=== PATIENT | male | born 1950 | race Caucasian/White ===

== ENCOUNTER 2017-06-17 09:18 | Observation (INO) | payer MEDICARE ==
--- NOTE | 2017-05-27 09:42 | HP ---
CC: Maryjo KRISTAL Chaudhry * HISTORY AND PHYSICAL: DATE OF PLANNED ADMISSION AND SURGERY: 06/17/17 - [facility] HISTORY OF PRESENT ILLNESS: Mr. Haney is a 66-year-old white male who is admitted with a 3 cm bladder calculus for cystoscopy and cystolitholapaxy. Mr. 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 The osteomyelitis required him to be on prolonged IV antibiotics and needing several surgeries, requiring hospitalization for about three months. During his hospital stay, he was having recurrent episodes of suprapubic discomfort, urgency, frequency and gross hematuria. On his [facility] at [facility], a large bladder calculus was noted. Because of the concomitant problems with his osteomyelitis, no treatment of the bladder calculus was offered at that time. The patient ultimately recovered from his jaw osteomyelitis. He continued to have voiding symptoms consisting of episodes of strong urgency, frequency, burning on urination feeling of incomplete bladder emptying, and episodes of gross hematuria. He was evaluated in my office and had a renal ultrasound, which was normal, showing no reanal calculi and no hydronephrosis or renal masses. Bladder ultrasound showed a 3 cm calculus. He had minimal post void residual. KUB confirmed the presence of a 3 cm radiopaque calculus in the bladder. Cystoscopy showed a moderately enlarged and obstructing prostate and a large bladder calculus. There were no suspicious bladder lesions seen. There was some hyperemia and edema of the bladder wall adjacent to the stone, which is felt to be due to mechanical irritation by the stone. His PSA six months ago was 0.4 Because of the prostate enlargement and the element of bladder outlet obstruction, he was started on finasteride. PAST MEDICAL HISTORY AND SYSTEM REVIEW: The patient is hypertensive, maintained on metoprolol 25 mg daily, Cozaar 50 mg daily, and HCTZ 25 mg daily. He was worked up by Dr. Bell from [facility] because of hypertension and possible congestive heart failure. His echocardiogram was normal and I am including it in his chart. The patient has type 2 diabetes mellitus and is maintained on metformin 500 mg daily. The patient denies any chest pain or shortness of breath at this time. The patient has history of Crohn disease, but it has not been active and he is on no treatment for the condition. The patient reports being allergic to CLINDAMYCIN, which gives him bloody stools , TRAMADOL, which gives him respiratory distress; REMICADE, which give him a severe systemic reaction; and HAEMOPHILUS INFLUENZAE VACCINE which gave him anaphylactic shock. He has taken quinolones without any reaction. PHYSICAL EXAMINATION GENERAL: Moderately overweight, otherwise healthy looking white male. VITAL SIGNS: Blood pressure 120/80, pulse of 70. LUNGS: Clear. HEART: Regular and rhythmic. No murmurs. ABDOMEN: Soft. No masses, no tenderness, and no CVA tenderness. EXTERNAL GENITALIA: He is circumcised. No penile lesions. Normal testes and no inguinal hernias. RECTAL EXAM: Shows a moderately enlarged, but non-suspicious prostate. EXTREMITIES: Show no edema. IMPRESSION: 1. Bladder outlet obstruction, improved on treatment with finasteride. 2. A 3 cm bladder calculus with minimal postvoid residual. 3. Diabetes mellitus. 4. Hypertension. 5. Crohn disease. 6. History of osteomyelitis of the right jaw, treated. PLAN: Plan is for cystoscopy and cystolitholapaxy. Considering the size of the stone, he might require more than one procedure to render him stone free. I discussed the procedure in detail. Some of the potential complications including bladder injury and need for staged procedure were discussed. All his questions were answered. [id number]/[facility] #: [id number] AZUL
[~2017-06-17 09:18] MED LIST: Buffered Lidocaine 0.9% SYRIN* 5 ML/SYR SYRINGE INTRADERM ONE
[2017-06-17] MEDS ORDERED: Buffered Lidocaine 0.9% SYRIN* 5 ML/SYR SYRINGE ONE (09:30)
[2017-06-17] MEDS ORDERED: Levofloxacin 750 MG IVPREMIX(* 750 MG/150 ML BAG ONE (09:30)
[2017-06-17] MEDS ORDERED: fentaNYL* 50 MCG/ML 2 ML VIAL (100 MCG VIAL) ONE (12:03)
[2017-06-17] MEDS ORDERED: Midazolam* 1 MG/ML 2 ML VIAL (2 MG) ONE (12:03)
[2017-06-17] MEDS ORDERED: Dextrose 50% Syringe 50 ML* 25 GM/50 ML SYRINGE ONE (12:27)
[2017-06-17] MEDS ORDERED: Lidocaine 2% PF * 5 ML VIAL ONE (12:51)
[2017-06-17] MEDS ORDERED: Desflurane* 240 ML INH ONE (13:08)
[2017-06-17] MEDS ORDERED: Acetaminophen TAB* 325 MG PO PRN ×2 (13:21→18:08)
[2017-06-17] MEDS ORDERED: Ondansetron INJ* 2 MG/ML VIAL IV PRN ×2 (13:21→18:08)
[2017-06-17] MEDS ORDERED: EPHEDrine (Pressors)* 50 MG/ML VIAL ONE (13:22)
[2017-06-17] MEDS ORDERED: KETAMINE HCL* 50 MG/ML 10 ML VIAL ONE (13:45)
[2017-06-17] MEDS ORDERED: Labetalol IV* 5 MG/ML 20 ML VIAL ONE (14:22)
[2017-06-17] MEDS ORDERED: Ondansetron INJ* 2 MG/ML VIAL ONE (15:36)
[2017-06-17] MEDS ORDERED: Acetaminophen TAB* 325 MG ONE (16:30)
[2017-06-17] MEDS ORDERED: Oxybutynin TAB* 5 MG ONE (16:30)
[2017-06-17] MEDS ORDERED: Furosemide IV* 10 MG/ML 2 ML VIAL (20 MG) IV SLOW PU ONE (16:40)
[2017-06-17] MEDS ORDERED: Furosemide IV* 10 MG/ML 2 ML VIAL (20 MG) ONE (16:46)
[2017-06-17 17:36] LABS: Hematocrit 43 % (42-52); Hemoglobin 14.4 g/dl (14.0-18.0); Mean Corpuscular HGB Conc 34 g/dl (31-36); Mean Corpuscular Hemoglobin 29 pg (27-31); Mean Corpuscular Volume 87 fL (80-94); Mean Platelet Volume 7 um3 (7.4-10.4); Red Blood Count 4.96 10^6/ul (4.0-5.4); Red Cell Distribution Width 14 % (10.5-15)
[2017-06-17] MEDS ORDERED: Dextrose 50% Syringe 50 ML* 25 GM/50 ML SYRINGE IV PUSH PRN (18:19)
[2017-06-17 18:44] LABS: BUN/Creatinine Ratio 14.8 (8-20); Calcium 8.8 mg/dL (8.6-10.3); EGFR African American 87.7 (>60); EGFR Non-African American 68.2 (>60); Magnesium 1.5 mg/dL (1.9-2.7); Potassium 3.5 mmol/L (3.5-5.0)
[2017-06-17] MEDS ORDERED: Magnesium Sulf 4 GM/100 ML IV* 4,000 MG/100 ML BAG IVPB ONE (18:58)
[2017-06-17] MEDS ORDERED: Metoprolol Tartrate TAB* 25 MG PO SCH (22:00)
[2017-06-17] MEDS ORDERED: Losartan TAB* 25 MG PO SCH (22:00)
[2017-06-17] MEDS ORDERED: Hydrochlorothiazide TAB* 25 MG PO SCH (22:00)
[2017-06-17] MEDS ORDERED: Nitroglycerin TAB 0.4 MG* 0.4 MG TAB SL ONE (22:25)
[2017-06-17] MEDS ORDERED: Nitroglycerin TAB 0.4 MG* 0.4 MG TAB ONE (22:30)
[2017-06-17] MEDS: Insulin LISPRO* 1 UNITS UNIT SUBCUT SCH (22:37)
[2017-06-17] MEDS: Metoprolol Tartrate TAB* 25 MG PO SCH (22:46)
--- NOTE | 2017-06-17 22:56 | PN ---
Progress Note - Progress Note Date of Service: 06/17/17 Note: Paged for concern for ongoing chest pain. No EKG changes. Trop negx2. Some relief with nitro. Will place on telemetry, obtain final set of troponin.
--- NOTE | 2017-06-18 02:37 | HP ---
CC: Maryjo Chaudhry NP; Dr. Peters * ADMISSION HISTORY AND PHYSICAL: DATE OF ADMISSION: 06/17/17 PRIMARY CARE PROVIDER: Maryjo Chaudhry NP UROLOGIST: Dr. Peters. ADMITTING PROVIDER: BYRON Cerda SUPERVISING PHYSICIAN: Dr. Eddie Peguero * (DICTATED BY BYRON CERDA) CHIEF COMPLAINT: Syncope. HISTORY OF PRESENT ILLNESS: This is a 66-year-old gentleman with non-insulin- dependent diabetes, hypertension, peripheral neuropathy, Crohn's disease, obstructive sleep apnea, chronic diastolic heart failure, and rather recent history of right mandibular osteomyelitis, who underwent bladder lithotripsy with Dr. Peters earlier today. While in Recovery, the patient had a sudden episode of syncope. The patient in the recovery area was alert and responsive and had been talking to his when suddenly he went unresponsive. There was no associated seizure activity and the patient remained lethargic and took quite some time to return to his usual mental state. The patient does recall the episode and he states that he recalls feeling nauseated and his extremities felt heavy just preceding the episode. No complaints of chest pain or palpitations or shortness of breath. At the time of evaluation, he states that he feels "back to normal", continues to deny chest pain, shortness of breath, or palpitations. He denies any history of similar episodes, but does have multiple medication allergies and intolerances including opioids causing significant change in mental status. For this reason, he received mostly gas sedation with small dose of ketamine. Just preceding the acute episode, he had received a dose of Lasix due to poor urine output and Ditropan. The patient states that he has had no recent acute illness. He was otherwise feeling well prior to the procedure. He took his metoprolol as instructed, but held his hydrochlorothiazide and losartan. Regarding his diabetes control, the patient states that he was taken off of his metformin about a month ago due to excellent glucose control. He continues to check his blood glucose each morning and states that it is generally less than 130 mg/dL, but also reports that he tends to become symptomatic with a glucose of less than 100 mg/dL. The patient does have Crohn's disease and has frequent bloody diarrhea and is not on any current treatment. 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 The patient was hospitalized at [facility] for July and August of this year with mandibular osteomyelitis and underwent multiple surgical procedures without complication as a result of this. He is followed by Dr. Jacinto Restrepo and is not currently treated with any antibiotics. He has some chronic pain associated with this, but no recent increase in pain. PAST MEDICAL HISTORY: 1. Kef-jhyceji-pkkmiquhu diabetes - reportedly well controlled and not currently on any hypoglycemic agents. 2. Hypertension. 3. Peripheral neuropathy. 4. Crohn's disease. 5. Right mandibular osteomyelitis. 6. Glaucoma. 7. Obstructive sleep apnea by history without use of CPAP. 8. Chronic diastolic heart failure. PAST SURGICAL HISTORY: 1. Multiple jaw surgeries. 2. Hernia repair. HOME MEDICATIONS: 1. Finasteride 5 mg p.o. daily. 2. Hydrochlorothiazide 25 mg p.o. daily. 3. Xalatan 1 drop in both eyes daily. 4. Cozaar 50 mg p.o. daily. 5. Meclizine 25 mg p.o. daily as needed for dizziness. 6. Metformin 500 mg p.o. twice daily. 7. Metoprolol tartrate 25 mg p.o. twice daily. SOCIAL HISTORY: The patient denies a history of smoking. Rare alcohol consumption. He lives at home with his . REVIEW OF SYSTEMS: As noted above in HPI, all other systems reviewed and otherwise considered negative. PHYSICAL EXAMINATION GENERAL: This is a 66-year-old male, who is lying comfortably in the recovery area accompanied by his in a reclined position and in no acute distress, able to provide a full history. VITAL SIGNS: Most recent vitals, temperature 98.4 degrees Fahrenheit, pulse 82 beats per minute, respiratory rate 13, oxygen saturation 96% on 2 L, and blood pressure 129/72 and entitled CO2 of 24. Orthostatic vital signs includes blood pressure of 116/68, lying with a pulse of 79, sitting 126/76 with a pulse of 90 , standing 136/78 with a pulse of 92. HEENT: Head is normocephalic and atraumatic. Mucous membranes are pink and moist. RESPIRATORY: Lungs are clear to auscultation without wheezes, crackles, or rhonchi. CARDIOVASCULAR: Heart has a regular rate and rhythm without murmurs, rubs, or gallops. ABDOMEN: Soft and nontender to palpation, Maza catheter in place with moderate bloody output. NEUROLOGIC: Strength is grossly intact in all 4 extremities. No focal deficits. PSYCH: The patient is alert and appropriately oriented. LABORATORY DATA: Laboratory evaluation, CBC shows a white blood cell count of 15,000, hemoglobin 14.4 g/dL, and a platelet count of 303,000. Basic metabolic panel shows a sodium of 134 mmol/L, potassium 3.5, BUN 16, creatinine 1.06, random glucose of 185 mg/dL. Magnesium of 1.5. Troponin 0. BNP of 21. IMAGING: EKG shows a right bundle-branch block with T-wave inversion in V1 and V2 without comparison available. ASSESSMENT AND PLAN: This is a 66-year-old male with vpx-iyapbfz-oethlrmpy diabetes, hypertension, peripheral neuropathy, Crohn's disease, recent right mandibular osteomyelitis, glaucoma, obstructive sleep apnea, and chronic diastolic heart failure who had an acute syncopal episode postoperatively following bladder lithotripsy without clear etiology. 1. Syncope - no clear etiology for the patient's acute episode. No acute neurologic deficits and the patient has fully recovered at this time. It sounds to be vasovagal based on his description of events or perhaps a medication reaction as he had recently received Ditropan and Lasix. No evidence of cardia dysrhythmia as he was on the monitor at that time. No dramatic hypotension recorded. Orthostatic vital signs at this time are within normal limits. No evidence of acute coronary syndrome. Because of his multiple comorbidities, recommend that the patient stay for a period of observation. We will maintain continuous telemetry monitoring, repeat an EKG, and obtain serial troponins. 2. Status post bladder lithotripsy - the patient had a 3 cm bladder calculus treated by Dr. Peters earlier today. Maza catheter is in place. Bladder irrigation and Maza care per Dr. Peters. 3. Hypomagnesemia - we will replace magnesium. 4. Hypertension - the patient is normotensive at this time with normal orthostatic vital signs. We will continue his metoprolol, but hold his hydrochlorothiazide and losartan at this time. 5. Peripheral neuropathy. 6. Crohn's disease. The patient is not actively treated for this. Could use GI followup, but this is unrelated to his acute hospitalization. 7. Glaucoma. 8. Recent history of right mandibular osteomyelitis - chronically followed by Dr. Jacinto Restrepo, but not currently treated. 9. Obstructive sleep apnea without use of CPAP. 10. Chronic diastolic heart failure without evidence of acute exacerbation. 11. Code status. The patient is full code. 12. Healthcare proxy is his . DISPOSITION: The patient is being admitted to observation status after an acute syncopal episode with plans for likely discharge tomorrow as long as he remains asymptomatic. BYRON CERDA [id number]/[facility] #: [id number] MTDD
[2017-06-18 05:49] LABS: Hematocrit 41 % (42-52); Hemoglobin 14.1 g/dl (14.0-18.0); Mean Corpuscular HGB Conc 34 g/dl (31-36); Mean Corpuscular Hemoglobin 30 pg (27-31); Mean Corpuscular Volume 87 fL (80-94); Mean Platelet Volume 7 um3 (7.4-10.4); Red Blood Count 4.69 10^6/ul (4.0-5.4); Red Cell Distribution Width 14 % (10.5-15); White Blood Count 10.6 10^3/ul (3.5-10.8)
[2017-06-18 06:09] LABS: BUN/Creatinine Ratio 12.3 (8-20); Calcium 8.9 mg/dL (8.6-10.3); EGFR African American 76.2 (>60); EGFR Non-African American 59.2 (>60); Potassium 3.8 mmol/L (3.5-5.0)
[2017-06-18] MEDS: Insulin LISPRO* 1 UNITS UNIT SUBCUT SCH (08:16)
[2017-06-18] MEDS ORDERED: Latanoprost 0.005%* 2.5 ml BTL BOTH EYES SCH (09:00)
[2017-06-18] MEDS: Metoprolol Tartrate TAB* 25 MG PO SCH (09:46)
[2017-06-18 11:33] VITALS: BP 129/74
--- NOTE | 2017-06-18 13:26 | OP ---
OPERATIVE REPORT: DATE OF OPERATION: 06/17/17 DATE OF : 48 SURGEON: Neal Peters MD ANESTHESIOLOGIST: Dr. Milton Mancuso. ANESTHESIA: General. PRE-OP DIAGNOSES: 1. Bladder calculus (3.5 cm). 2. Bladder outlet obstruction and prostate enlargement. POST-OP DIAGNOSES: 1. Bladder calculus (3.5 cm). 2. Bladder outlet obstruction and prostate enlargement. OPERATIVE PROCEDURE: 1. Cystoscopy. 2. Laser cystolitholapaxy. INDICATIONS FOR PROCEDURE: Mr. Haney is 66-year-old white male, who has bladder outlet obstruction and prostate enlargement and has been maintained on medical treatment with the good bladder emptying. He was noted earlier this year to have a 3 cm bladder calculus. He has been symptomatic from it having frequency, urgency, and episodes of gross hematuria. Renal ultrasound was normal. Cystoscopy confirmed an obstructing prostate, minimal postvoid residual and a large bladder calculus. Because of the above history and finding, the patient was taken to the operating room for the above procedure. Pathology: at cystoscopy, the penile and bulbar urethrae looked normal. The prostatic urethra measured about 3 cm in length and there was moderate obstruction by prostate enlargement and by elevation of the bladder neck and a prominent median lobe. Examination of the bladder showed a yellowish-grayish calculus measuring about 3.5 cm in diameter. It was located in the base of the bladder. The bladder wall showed diffuse moderate trabeculations. There were no suspicious bladder lesions seen. No diverticula were noted. The ureteral orifices looked normal. The stone was hard and difficult to fragment due to its composition. The prostatic urethra was vascular. DESCRIPTION OF PROCEDURE: After successful general anesthesia, patient was placed in the lithotomy position and was prepped and draped for cystoscopy. Cystoscopy was performed. The bladder was inspected and the above findings were noted. The stone was felt to be too large to be engaged in the stone crushing forceps. A 1,000 micron laser fiber was then introduced through the ureteroscope. Extensive lasering of the calculus was then performed. That allowed partially hollowing the calculus and to allow for the stone crushing forceps to be applied over the calculus. During the lasering, care was taken not to injure the bladder wall and the lasering was done with constant direct vision lasering the stone only. The stone crushing forceps were then introduced inside the bladder. The bladder was filled up with irrigation fluid. The stone was grasped with the stone crushing forceps and was fragmented into several pieces. The bladder was irrigated and the fragments were extracted. There was blood noted from the prostatic urethra and that made the visualization rather difficult and unsafe to perform any additional fragmentation of the stone with the stone the grasping forceps. There were several stone fragments remaining in the bladder. It was decided at this point to stop the procedure. A cystoscopy showed no evidence of any bladder wall injury. The cystoscope was removed and a size 20 [place]ian Maza catheter was passed inside the bladder and the balloon inflated with 15 cc of water. Irrigation yielded clear returns. Patient tolerated the procedure well and left the operating room in good condition. The plan is to bring the patient back in another week for completion of the cystolitholapaxy and extraction of the residual stone fragments. [id number]/[facility] #: [id number] AZUL
[2017-06-18] MEDS ORDERED: Finasteride TAB* 5 MG PO SCH (18:00)
--- NOTE | 2017-06-19 06:08 | DS ---
CC: Maryjo Chaudhry NP; Dr. Peters; Dr. Bell DISCHARGE SUMMARY: DATE OF ADMISSION: 06/17/17 DATE OF DISCHARGE: 06/18/17 PRIMARY CARE PROVIDER: Maryjo Chaudhry NP UROLOGIST: Dr. Peters. MINE SAFETY MANAGER: Dr. Bell. DISCHARGE DIAGNOSES: 1. Syncopal episode, likely vasovagal, associated with postanesthesia nausea. 2. Status post cystoscopy with laser cystolitholapaxy. SECONDARY DIAGNOSES: 1. Diet-controlled diabetes. 2. Hypertension. 3. Peripheral neuropathy. 4. Crohn's disease. 5. History of right mandibular osteomyelitis. 6. Glaucoma. 7. Obstructive sleep apnea. 8. Chronic diastolic heart failure. MEDICATION LIST: Unchanged from admission. 1. Finasteride 5 mg p.o. q.p.m. 2. Hydrochlorothiazide 25 mg p.o. q.p.m. 3. Xalatan 0.005% 1 drop to both eyes in the morning. 4. Losartan 50 mg p.o. q.p.m. 5. Metoprolol tartrate 25 mg p.o. b.i.d. HOSPITAL COURSE: Mr. Haney is a 66-year-old male with a past medical history as stated above th at underwent bladder lithotripsy with Dr. Peters. While in recovery, the patient had a syncopal ep isode. For more details about his presentation, I refer you to his history and physical. Due to his syncopal episode, the hospitalist service was consulted and the patient was transferred to telemetry floor for further evaluation. His laboratory test did not show any significant change. His creatinine is slightly elevated, but no t that different from his baseline. He had serial troponins that were negative and serial EKGs that showed sinus rhythm with a right bundle branch block that is not new. The patient's orthostatic were negative and he was feeling well today and anxious for discharge. I d id offer him the option of having an outpatient stress test by Tuesday, but he would prefer to see Dr. Bell and then decide if he is going to pursue a stress test or not. At this point, the impression is that he had a syncopal episode, likely vasovagal associated with nausea after his surgical procedu re. I did discuss this discharge with Dr. Schuster and his recommendation is for the patient to go home with a Maza catheter and to call their office Tuesday to schedule his followup. PHYSICAL EXAMINATION: Vital Signs: Temperature 98.3, heart rate is 71, respiratory rate is 20, oxyg en saturation is 98% on room air, blood pressure is 105/61. General: The patient is a pleasant gent doc sitting up on the bed, in no acute distress. CVS: Normal S1 and S2. Regular rate and rhythm. Chest: Breath sounds present bilaterally with no added sounds. Abdomen is soft, bowel sounds pres ent. Extremities: No edema. Neuro: He is alert, awake, and oriented x3. Able to move all 4 extrem ities. DIET: Heart healthy, consistent carb diet. ACTIVITIES: As tolerated. DISPOSITION: To home. STATUS WHILE IN THE HOSPITAL: Observation. Please keep in mind this is a summarized version of this patient's hospital stay. If you need more in formation, please feel free to call me at [phone] or please obtain the full medical records. TIME SPENT: Appropriately 45 minutes was spent to complete the discharge. [id number]/[facility] #: [id number]
== END 2017-06-18 13:36 | disposition home or self-care (01) ==
LOC: OR 09:18 → SSU 18:08 → MEDTELE 23:58
PROVIDERS: ADMIT Internal Medicine; ATTEND Urology
PROC: 0TCB8ZZ Extirpation of Matter from Bladder, Via Natural or Artificial Opening Endoscopic (ICD-10-PCS; principal; 2017-06-17 10:45)
DX: R55 Syncope and collapse (principal); R11.0 Nausea; T41.1X5A Adverse effect of intravenous anesthetics, initial encounter; Y92.239 Unspecified place in hospital as the place of occurrence of the external cause; N21.0 Calculus in bladder; N32.0 Bladder-neck obstruction; I45.10 Unspecified right bundle-branch block; E11.9 Type 2 diabetes mellitus without complications; G62.9 Polyneuropathy, unspecified; K50.90 Crohn's disease, unspecified, without complications; M27.2 Inflammatory conditions of jaws; G47.33 Obstructive sleep apnea (adult) (pediatric); I11.0 Hypertensive heart disease with heart failure; I50.9 Heart failure, unspecified; Z88.8 Allergy status to other drugs, medicaments and biological substances; Z79.899 Other long term (current) drug therapy; N40.0 Benign prostatic hyperplasia without lower urinary tract symptoms
CPT/HCPCS: 36415; 80048; 82365; 83605; 83735; 83880; 84484; 85025; 85027; 88300; 93005; 96365; 96366; A9270-GY; G0378; J1940; J2250; J2405; J3010; J3475

== ENCOUNTER 2017-06-24 08:16 | Day surgery (SDC) | payer MEDICARE ==
--- NOTE | 2017-06-22 20:42 | HP ---
HISTORY AND PHYSICAL: DATE OF PLANNED ADMISSION AND SURGERY: 06/24/17 HISTORY OF PRESENT ILLNESS: Mr. Haney is a 66-year-old white male who is admitted with residual bladder calculi for cystoscopy and cystolitholapaxy. Please refer to my detailed history and physical for his admission dated . Mr. Haney has bladder outlet obstruction caused by prostate enlargement. He responded well to medical treatment with tamsulosin and finasteride, with good bladder emptying. He was noted on work-up to have a 3-cm bladder calculus. He was taken to the operating room on 06/17/17 and underwent a cystoscopy and cystolitholapaxy. The stone was large and hard to break and towards the end of the procedure, there were several residual stone fragments that could not be extracted due to poor visibility in the bladder from bleeding from the prostatic urethra. He had a Maza catheter placed. The plan was to bring him back to the operating room a week later for extraction of the residual stone fragments. Following his initial procedure and while in the PACU, he felt lightheaded and had early syncope. He was evaluated by the hospitalist service and was admitted overnight for observation. His cardiac workup was negative. The conclusion was he most likely had a vasovagal reflux. He was discharged the next day and has been feeling fine. Please refer to the detailed note from the hospitalist service regarding that admission. The patient has been doing fine. He has had no recurrent systemic symptoms. He is now admitted for cystolitholapaxy. There has not been any other changes in his medications or in his general medical condition. I discussed the above plans with the patient and his . All their questions were answered. [id number]/[facility] #: [id number] AZUL
[~2017-06-24 08:16] MED LIST changes: +Acetaminophen IV 1GM/100ML * 1,000 MG/100 ML VIAL IVPB ONE; +DiMENhydriNATE IV* 50 MG/ML VIAL IV PUSH PRN; +Famotidine IV* 10 MG/ML 2 ML (20 mg) IV ONE; +PROCHLORPERAZINE INJ 5 MG/ML 2 ML VIAL IV PRN
[2017-06-24] MEDS ORDERED: Famotidine IV* 10 MG/ML 2 ML (20 mg) ONE (08:32)
[2017-06-24] MEDS ORDERED: cefTRIAXone(*) 2 GM ADDV.VIAL IVPB ONE (08:32)
[2017-06-24] MEDS ORDERED: KETAMINE HCL* 50 MG/ML 10 ML VIAL ONE (09:36)
[2017-06-24] MEDS ORDERED: Midazolam* 1 MG/ML 10 ML VIAL (10 MG) ONE (09:36)
[2017-06-24] MEDS ORDERED: PROCHLORPERAZINE INJ 5 MG/ML 2 ML VIAL ONE (10:15)
[2017-06-24] MEDS ORDERED: Ondansetron INJ* 2 MG/ML VIAL ONE (10:15)
[2017-06-24] MEDS ORDERED: Lidocaine 2% PF* 10 ML AMP ONE (10:15)
[2017-06-24] MEDS ORDERED: Propofol* 10 MG/ML 20 ML BTL IV PUSH ONE (10:15)
[2017-06-24] MEDS ORDERED: Lidocaine 2% PF * 5 ML VIAL ONE (10:15)
[2017-06-24] MEDS ORDERED: Acetaminophen IV 1GM/100ML * 100 ML ONE (11:09)
[2017-06-24] MEDS ORDERED: DiMENhydriNATE IV* 50 MG/ML VIAL ONE (12:34)
[2017-06-24 14:33] VITALS: BP 143/72
--- NOTE | 2017-06-24 16:42 | OP ---
CC: Maryjo Chaudhry NP OPERATIVE REPORT: DATE OF OPERATION: 06/24/17 DATE OF : 48 SURGEON: Neal Peters MD ANESTHESIOLOGIST: Dr. Usman Glass. ANESTHESIA: General. PRE-OP DIAGNOSIS: Residual bladder calculi. POST-OP DIAGNOSIS: Residual bladder calculi. OPERATIVE PROCEDURE: 1. Cystoscopy. 2. Cystolitholapaxy. INDICATIONS FOR PROCEDURE: Mr. Haney is a 66-year-old white male who has a long history of bladder outlet obstruction and was noted to have a 3 cm bladder calculus. Last week he underwent a cystolitholapaxy. The stone was hard and difficult to break and towards the end of the procedure, after evacuating most of the stone fragments there was poor visibility due to bleeding from the prostatic urethra and from the bladder wall making additional cystolitholapaxy not safe. He had a Maza catheter placed and was discharged home. The patient now is admitted for extraction of the residual bladder calculi. PATHOLOGY AT CYSTOSCOPY: The penile and bulbar urethrae looked normal. The prostatic urethra measured about 2.5 cm in length and there was moderate obstruction by prostate enlargement. Examination of the bladder showed hyperemia, irritation, and mucosal disruption in the base of the bladder secondary to the recent instrumentation and cystolitholapaxy. There was, however, no evidence of any bladder perforation. The ureteral orifices looked normal. Several stone fragments measuring up to 1 cm in size were noted. DESCRIPTION OF PROCEDURE: After successful general anesthesia, patient was placed in the lithotomy position and prepped and draped for cystoscopy. A 25- Chilean cystoscope was introduced inside the bladder under direct vision. The findings in the area of the trigone were noted. Using the stone crushing forceps, the residual stone fragments were held, brought in into the middle of the distended bladder and crushed. The bladder was then thoroughly irrigated and all the stone fragments were evacuated. Final inspection showed no residual stones and no bladder injury. The scope was removed and a size 18 Maza catheter was passed inside the bladder and the balloon inflated with 10 cc of water. The patient tolerated the procedure well and left the operating room in good condition. The plan is to give him a trial of voiding before his discharge today. [id number]/[facility] #: [id number] [facility]
== END 2017-06-24 14:35 | disposition home or self-care (01) ==
LOC: OR 08:16
PROVIDERS: ATTEND Urology
PROC: 0TCB8ZZ Extirpation of Matter from Bladder, Via Natural or Artificial Opening Endoscopic (ICD-10-PCS; principal; 2017-06-24 09:30)
DX: N21.0 Calculus in bladder (principal); N40.1 Benign prostatic hyperplasia with lower urinary tract symptoms; N13.8 Other obstructive and reflux uropathy; I10 Essential (primary) hypertension; I11.0 Hypertensive heart disease with heart failure; I50.9 Heart failure, unspecified; E11.9 Type 2 diabetes mellitus without complications
CPT/HCPCS: 88300; J0696; J0780; J1240; J2001; J2250; J2405; J2704